=== PATIENT | female | born 1945 | race Hispanic/Latino ===

== ENCOUNTER 2017-08-12 21:12 | Emergency (ER) | payer MEDICARE ==
[~2017-08-12 21:12] MED LIST: BRIN10DR OU; CLOP75TA32 PO; CYAN1TAB44 SL; ESOM40CA PO; INSU10VI3 SQ; LANTANOPROST OU; NITR0.4T50 SL; PREG75 PO; SOTA160T PO
[2017-08-12 21:45] LABS: BASOPHILS % (AUTO) 0.5 % (0.0-5.0); EOSINOPHILS % (AUTO) 0.5 % (0.0-8.0); LYMPHOCYTES % (AUTO) 9.3 % (21.0-51.0); MEAN CORPUSCULAR HGB CONC 31.7 g/dL (32.0-36.0); MEAN CORPUSCULAR VOLUME 72.5 fL (79-99); MONOCYTES % (AUTO) 6.8 % (3.0-13.0); NEUTROPHILS % (AUTO) 82.9 % (40.0-77.0); PLATELET COUNT (AUTO) 91 K/uL (130-400); RED BLOOD CELL COUNT(AUTO) 4.27 MIL/uL (4.00-5.50); RED CELL DISTRIBUTION WIDTH 17.3 % (11.0-15.5); WHITE BLOOD COUNT (AUTO) 6.1 K/uL (4.8-10.8)
[2017-08-12 21:49] LABS: INR 1.02 (0.85-1.15); PARTIAL THROMBOPLASTIN TIME 27.5 SEC (26.3-35.5); PROTHROMBIN TIME 10.7 SEC (9.6-11.6)
[2017-08-12 21:50] LABS: CREATININE 0.8 mg/dL (0.5-1.5); POTASSIUM 3.6 mmol/L (3.5-5.1)
[2017-08-12 21:54] LABS: ALBUMIN 3.3 g/dL (3.5-5.0); BILIRUBIN,DIRECT 0.1 mg/dL (0.0-0.3); BILIRUBIN,TOTAL 0.4 mg/dL (0.2-1.0); TOTAL PROTEIN, SERUM 7.3 g/dL (6.0-8.3)
[2017-08-12] MEDS ORDERED: ONDANSETRON HCL 4 MG/2 ML VIAL ONE (21:59)
[2017-08-12] MEDS ORDERED: SODIUM CHLORIDE 0.9% 1000ML 1,000 ML IV ONE (22:04)
[2017-08-12] MEDS ORDERED: KETOROLAC TROMETHAMINE 30MG/ML ONE (22:04)
== END 2017-08-13 00:01 | disposition home or self-care (01) ==
LOC: EDH 21:12
DX: K52.9 Noninfective gastroenteritis and colitis, unspecified (principal); I25.10 Atherosclerotic heart disease of native coronary artery without angina pectoris; E11.9 Type 2 diabetes mellitus without complications; E78.5 Hyperlipidemia, unspecified; I10 Essential (primary) hypertension; K74.60 Unspecified cirrhosis of liver; Z72.0 Tobacco use
CPT/HCPCS: 36415; 74176; 80048; 80076; 82550; 83690; 84484; 85025; 85610; 85730; 93005; 96361; 96374; 96375; 99285; J1885; J2405; J7030

== ENCOUNTER → 2018-02-22 | Outpatient (CLI) | payer MEDICARE ==
[~2018-02-22] VITALS: Ht 154.9 cm; Wt 73.5 kg
[~2018-02-22] MED LIST changes: +REGADENOSON 0.4 MG/5 ML PF SYG IVP SCH
== END | disposition home or self-care (01) ==
LOC: SHCH 10:00
PROVIDERS: ATTEND Internal Medicine Cardiovascular Disease
DX: I65.29 Occlusion and stenosis of unspecified carotid artery (principal); R05 Cough; I11.0 Hypertensive heart disease with heart failure; I50.22 Chronic systolic (congestive) heart failure; E11.43 Type 2 diabetes mellitus with diabetic autonomic (poly)neuropathy; E78.5 Hyperlipidemia, unspecified; M19.90 Unspecified osteoarthritis, unspecified site; I25.10 Atherosclerotic heart disease of native coronary artery without angina pectoris; K21.9 Gastro-esophageal reflux disease without esophagitis; Z90.710 Acquired absence of both cervix and uterus
CPT/HCPCS: 78452; 93017; 96374; A9500 ×2; J2785

== ENCOUNTER 2018-03-10 06:44 | Day surgery (SDC) | payer MEDICARE ==
[2018-03-08 11:09] VITALS: BP 116/61
[2018-03-08 11:12] LABS: BASOPHILS % (AUTO) 0.7 % (0.0-5.0); EOSINOPHILS % (AUTO) 1.4 % (0.0-8.0); HEMATOCRIT 34.5 % (36-48); LYMPHOCYTES % (AUTO) 14.2 % (21.0-51.0); MEAN CORPUSCULAR HEMOGLOBIN 24.5 pg (27.0-33.0); MEAN CORPUSCULAR VOLUME 79.1 fL (79-99); MONOCYTES % (AUTO) 6.8 % (3.0-13.0); NEUTROPHILS % (AUTO) 76.9 % (40.0-77.0); PLATELET COUNT (AUTO) 71 K/uL (130-400); RED BLOOD CELL COUNT(AUTO) 4.36 MIL/uL (4.00-5.50); RED CELL DISTRIBUTION WIDTH 18.6 % (11.0-15.5); WHITE BLOOD COUNT (AUTO) 3.3 K/uL (4.8-10.8)
[2018-03-08 11:13] LABS: APPEARANCE,URINE Clear (CLEAR); BILIRUBIN,URINE Negative (NEGATIVE); COLOR,URINE Yellow (YELLOW); GLUCOSE, URINE (UA) 250 mg/dL (NEGATIVE); KETONES,URINE Negative (NEGATIVE); LEUKOCYTE ESTERASE ,URINE Negative (NEGATIVE); NITRATE,URINE Negative (NEGATIVE); OCCULT BLOOD,URINE Negative (NEGATIVE); PH,URINE 5.5 (5.0-8.0); PROTEIN,URINE Negative (NEGATIVE)
[2018-03-08 11:21] LABS: BACTERIA,URINE Rare /HPF (None Seen); RBC,URINE 0-1 /HPF (0-1); SQUAMOUS EPITHELIAL CELL,UR Few /HPF (0-2); WBC,URINE 0-1 /HPF (0-1)
[2018-03-08 11:22] LABS: CREATININE 0.8 mg/dL (0.5-1.5); POTASSIUM 4.1 mmol/L (3.5-5.1)
[~2018-03-10] VITALS: Ht 154.9 cm; Wt 74.2 kg
[2018-03-10] VITALS (20 sets, daily range): BP systolic 105–127; BP diastolic 37–59
[~2018-03-10 06:44] MED LIST changes: -BRIN10DR OU; +CLOP75TA14 PO; -CLOP75TA32 PO; -CYAN1TAB44 SL; -ESOM40CA PO; +FERS325 PO; +HUM10VIA6 SQ; -INSU10VI3 SQ; -LANTANOPROST OU; +METO5TAB2 PO; -NITR0.4T50 SL; +PANT20TA12 PO; -REGADENOSON 0.4 MG/5 ML PF SYG IVP SCH; +VITAMIN B12 PO
[2018-03-10 07:40] LABS: BASOPHILS % (AUTO) 0.5 % (0.0-5.0); HEMATOCRIT 32.6 % (36-48); LYMPHOCYTES % (AUTO) 18.6 % (21.0-51.0); MEAN CORPUSCULAR HEMOGLOBIN 24.7 pg (27.0-33.0); MEAN CORPUSCULAR HGB CONC 31.4 g/dL (32.0-36.0); MEAN CORPUSCULAR VOLUME 78.7 fL (79-99); MONOCYTES % (AUTO) 9.4 % (3.0-13.0); NEUTROPHILS % (AUTO) 69.5 % (40.0-77.0); NUCLEATED RED BLOOD CELLS 0.1 % (0.0-0.19); PLATELET COUNT (AUTO) 65 K/uL (130-400); RED BLOOD CELL COUNT(AUTO) 4.14 MIL/uL (4.00-5.50); RED CELL DISTRIBUTION WIDTH 18.5 % (11.0-15.5); WHITE BLOOD COUNT (AUTO) 3.1 K/uL (4.8-10.8)
[2018-03-10] MEDS ORDERED: ALPRAZOLAM 0.5 MG TABLET PO SCH (08:15)
[2018-03-10 08:45] LABS: BASOPHILS % (MANUAL) 1 % (0-2); EOSINOPHILS % (MANUAL) 2 % (1-6); LYMPHOCYTES % (MANUAL) 17 % (22-44); MAN.DIFF COMMENT-IMPRESSION MANUAL DIFFERENTIAL; MONOCYTES % (MANUAL) 5 % (2-9); SEGMENTED NEUTROPHILS % 75 % (40-70)
[2018-03-10] MEDS ORDERED: SODIUM CHLORIDE 0.9% 1000ML 1,000 ML IV ONE (09:12)
[2018-03-10] MEDS ORDERED: LIDOCAINE HCL-MPF 2% 5ML VIAL ONE (10:10)
[2018-03-10] MEDS ORDERED: NITROGLYCERIN 5 MG/ML 10 ML VIAL IV ONE (10:10)
[2018-03-10] MEDS ORDERED: IOHEXOL 350 MG/ML 100ML INFUS..BTL IV ONE (10:10)
[2018-03-10] MEDS ORDERED: IOHEXOL-350 50ML VIAL IV ONE (10:11)
[2018-03-10] MEDS ORDERED: SODIUM CHLORIDE 0.9% 1000ML 1,000 ML IV SCH (11:21)
[2018-03-10] MEDS ORDERED: HYDRALAZINE HCL 20 MG/ML VIAL IV PRN (11:30)
[2018-03-10] MEDS ORDERED: GLUCAGON 1MG KIT 1 MG ML IM PRN (11:30)
[2018-03-10] MEDS ORDERED: DEXTROSE 50%-WATER 50 ML DISP.SYRIN IV PRN (11:30)
[2018-03-10] MEDS ORDERED: METOPROLOL TARTRATE 1 MG/ML 5ML VIAL IV PRN (11:30)
[2018-03-10] MEDS ORDERED: NITROGLYCERIN 0.4 MG SL TAB SL PRN (11:30)
[2018-03-10] MEDS ORDERED: INSULIN HUMULIN R 100 UNIT/ML 3ML SQ SCH (11:30)
[2018-03-10] MEDS ORDERED: ATROPINE SULFATE 0.1 MG/ML 10 ML SYG IVP ONE (11:52)
[2018-03-10] MEDS ORDERED: ONDANSETRON HCL MDV 20ML 2 MG/ML VIAL ONE (11:53)
[2018-03-10] MEDS ORDERED: ONDANSETRON HCL 4 MG/2 ML VIAL IVP SCH (13:30)
== END 2018-03-10 15:39 | disposition home or self-care (01) ==
LOC: DAH 06:44
PROVIDERS: ATTEND Internal Medicine Cardiovascular Disease
DX: I25.119 Atherosclerotic heart disease of native coronary artery with unspecified angina pectoris (principal); I10 Essential (primary) hypertension; E11.9 Type 2 diabetes mellitus without complications; I97.89 Other postprocedural complications and disorders of the circulatory system, not elsewhere classified; D61.818 Other pancytopenia; I48.0 Paroxysmal atrial fibrillation; I73.9 Peripheral vascular disease, unspecified; Z95.0 Presence of cardiac pacemaker; I49.5 Sick sinus syndrome; Z79.4 Long term (current) use of insulin; Z79.01 Long term (current) use of anticoagulants; Z79.899 Other long term (current) drug therapy; Z90.710 Acquired absence of both cervix and uterus; Z98.890 Other specified postprocedural states; Z82.49 Family history of ischemic heart disease and other diseases of the circulatory system
CPT/HCPCS: 36415 ×2; 71045; 80048; 81001; 82948 ×2; 85025 ×2; 85060; 85610; 85730; 93005; 93459; A4606; C1894 ×2; J1644; J1815; J3490 ×2; J7030; Q9965; Q9967 ×2; J0461

== ENCOUNTER → 2018-04-08 | Outpatient (CLI) | payer MEDICARE ==
[~2018-04-08] MED LIST changes: +IOHEXOL-350 75 ML VIAL IV ONE
== END | disposition home or self-care (01) ==
LOC: RAH 10:53
PROVIDERS: ATTEND Internal Medicine Gastroenterology
DX: K74.60 Unspecified cirrhosis of liver (principal); D73.2 Chronic congestive splenomegaly; R18.8 Other ascites; Z90.710 Acquired absence of both cervix and uterus; Z90.49 Acquired absence of other specified parts of digestive tract
CPT/HCPCS: 74178; Q9967

== ENCOUNTER → 2018-04-19 | Outpatient (CLI) | payer MEDICARE ==
[~2018-04-19] MED LIST changes: -IOHEXOL-350 75 ML VIAL IV ONE
[2018-04-19 09:57] LABS: BASOPHILS % (AUTO) 0.7 % (0.0-5.0); EOSINOPHILS % (AUTO) 1.6 % (0.0-8.0); HEMATOCRIT 36.2 % (36-48); LYMPHOCYTES % (AUTO) 15.8 % (21.0-51.0); MEAN CORPUSCULAR HEMOGLOBIN 24.2 pg (27.0-33.0); MEAN CORPUSCULAR HGB CONC 31.7 g/dL (32.0-36.0); MEAN CORPUSCULAR VOLUME 76.3 fL (79-99); MONOCYTES % (AUTO) 5.4 % (3.0-13.0); NEUTROPHILS % (AUTO) 76.5 % (40.0-77.0); PLATELET COUNT (AUTO) 63 K/uL (130-400); RED BLOOD CELL COUNT(AUTO) 4.74 MIL/uL (4.00-5.50); WHITE BLOOD COUNT (AUTO) 2.7 K/uL (4.8-10.8)
[2018-04-19 10:10] LABS: INR 1.05 (0.85-1.15)
[2018-04-19 10:13] LABS: ALBUMIN 3.3 g/dL (3.5-5.0); BILIRUBIN,TOTAL 0.5 mg/dL (0.2-1.0); CREATININE 0.8 mg/dL (0.5-1.5); TOTAL PROTEIN, SERUM 7.1 g/dL (6.0-8.3)
[2018-04-19 10:20] LABS: BASOPHILS % (MANUAL) 2 % (0-2); LYMPHOCYTES % (MANUAL) 15 % (22-44); MONOCYTES % (MANUAL) 2 % (2-9); SEGMENTED NEUTROPHILS % 81 % (40-70)
[2018-04-19 10:22] LABS: MAN.DIFF COMMENT-IMPRESSION MANUAL DIFFERENTIAL; PLATELET MORPHOLOGY COMMENT DECREASED
== END | disposition home or self-care (01) ==
LOC: RAH 09:23
PROVIDERS: ATTEND Internal Medicine Gastroenterology
DX: K74.60 Unspecified cirrhosis of liver (principal); I48.91 Unspecified atrial fibrillation
CPT/HCPCS: 36415; 76705; 80053; 85025; 85610

== ENCOUNTER 2018-06-14 11:24 | Emergency (ER) | payer MEDICARE ==
[2018-06-14 11:54] LABS: BASOPHILS % (AUTO) 0.4 % (0.0-5.0); EOSINOPHILS % (AUTO) 1.4 % (0.0-8.0); HEMATOCRIT 31.9 % (36-48); LYMPHOCYTES % (AUTO) 18.3 % (21.0-51.0); MEAN CORPUSCULAR HEMOGLOBIN 23.4 pg (27.0-33.0); MEAN CORPUSCULAR HGB CONC 30.9 g/dL (32.0-36.0); MEAN CORPUSCULAR VOLUME 75.9 fL (79-99); MONOCYTES % (AUTO) 8.2 % (3.0-13.0); NEUTROPHILS % (AUTO) 71.7 % (40.0-77.0); NUCLEATED RED BLOOD CELLS 0.3 % (0.0-0.19); PLATELET COUNT (AUTO) 135 K/uL (130-400); RED BLOOD CELL COUNT(AUTO) 4.21 MIL/uL (4.00-5.50); RED CELL DISTRIBUTION WIDTH 18.9 % (11.0-15.5); WHITE BLOOD COUNT (AUTO) 9.3 K/uL (4.8-10.8)
[2018-06-14 12:07] LABS: CREATININE 0.9 mg/dL (0.5-1.5)
[2018-06-14 12:08] LABS: ALBUMIN 3.2 g/dL (3.5-5.0); BILIRUBIN,TOTAL 0.5 mg/dL (0.2-1.0); POTASSIUM 2.9 mmol/L (3.5-5.1); TOTAL PROTEIN, SERUM 7.1 g/dL (6.0-8.3)
[2018-06-14 12:20] LABS: B-TYPE NATRIURETIC PEPTIDE 61 pg/mL (0-100)
[2018-06-14 12:33] LABS: APPEARANCE,URINE Clear (CLEAR); BILIRUBIN,URINE Negative (NEGATIVE); COLOR,URINE Yellow (YELLOW); GLUCOSE, URINE (UA) 500 mg/dL (NEGATIVE); KETONES,URINE Negative (NEGATIVE); LEUKOCYTE ESTERASE ,URINE Negative (NEGATIVE); NITRATE,URINE Negative (NEGATIVE); OCCULT BLOOD,URINE Negative (NEGATIVE); PH,URINE 5.5 (5.0-8.0); PROTEIN,URINE Negative (NEGATIVE); UROBILINOGEN,URINE 0.2 mg/dL (0.2-1.0)
[2018-06-14] MEDS ORDERED: POTASSIUM BICARB/CIT AC 25 MEQ TABLET.EFF ONE (12:40)
[2018-06-14 13:16] LABS: BACTERIA,URINE Rare /HPF (None Seen); RBC,URINE 0-1 /HPF (0-1); SQUAMOUS EPITHELIAL CELL,UR Rare /HPF (0-2); WBC,URINE 0-1 /HPF (0-1)
== END 2018-06-14 13:11 | disposition home or self-care (01) ==
LOC: EDH 11:24
DX: E87.6 Hypokalemia (principal); E11.9 Type 2 diabetes mellitus without complications; I25.10 Atherosclerotic heart disease of native coronary artery without angina pectoris; K74.60 Unspecified cirrhosis of liver; E78.5 Hyperlipidemia, unspecified; I10 Essential (primary) hypertension; Z90.49 Acquired absence of other specified parts of digestive tract; Z90.710 Acquired absence of both cervix and uterus
CPT/HCPCS: 36415; 71045; 80053; 81001; 82550; 83880; 84484; 85025; 87804; 93005

== ENCOUNTER → 2019-06-29 | Outpatient (CLI) | payer OTHER, MEDICARE ==
[~2019-06-29] MED LIST changes: +BRINOS OU; -CLOP75TA14 PO; -FERS325 PO; +FURO20TA4 PO; -HUM10VIA6 SQ; +INSU100I35 SQ; +METO25 PO; -METO5TAB2 PO; +OSEL75 PO; +PANT40TA25 PO; +SPIR50TA5 PO; +SUCR1TAB2 PO; -VITAMIN B12 PO
== END | disposition home or self-care (01) ==
LOC: SHCH 12:39
PROVIDERS: ATTEND Internal Medicine Cardiovascular Disease
DX: I65.23 Occlusion and stenosis of bilateral carotid arteries (principal)
CPT/HCPCS: 93880

== ENCOUNTER → 2019-08-04 | Outpatient (CLI) | payer OTHER, MEDICARE | END | disposition home or self-care (01) | LOC: RAH 09:57 | PROVIDERS: ATTEND Internal Medicine Gastroenterology | DX: K56.609 Unspecified intestinal obstruction, unspecified as to partial versus complete obstruction (principal); M47.816 Spondylosis without myelopathy or radiculopathy, lumbar region | CPT/HCPCS: 74018 ==

== ENCOUNTER 2019-08-24 08:31 | Inpatient (IN) | payer OTHER, MEDICARE ==
[~2019-08-24] VITALS: Ht 152.4 cm; Wt 74.8 kg
[2019-08-24 09:19] LABS: BASOPHILS % (AUTO) 0.4 % (0.0-5.0); EOSINOPHILS % (AUTO) 1.7 % (0.0-8.0); LYMPHOCYTES % (AUTO) 12.8 % (21.0-51.0); MEAN CORPUSCULAR HEMOGLOBIN 22.7 pg (27.0-33.0); MEAN CORPUSCULAR HGB CONC 28.9 g/dL (32.0-36.0); MEAN CORPUSCULAR VOLUME 78.5 fL (79-99); MONOCYTES % (AUTO) 7.8 % (3.0-13.0); NEUTROPHILS % (AUTO) 76.7 % (40.0-77.0); NUCLEATED RED BLOOD CELLS 0.4 % (0.0-0.19); PLATELET COUNT (AUTO) 91 K/uL (130-400); RED BLOOD CELL COUNT(AUTO) 2.47 MIL/uL (4.00-5.50); RED CELL DISTRIBUTION WIDTH 17.9 % (11.0-15.5); WHITE BLOOD COUNT (AUTO) 5.4 K/uL (4.8-10.8)
[2019-08-24 09:25] LABS: HEMATOCRIT 19.4 % (36-48)
[2019-08-24 09:29] LABS: CREATININE 0.9 mg/dL (0.5-1.5); POTASSIUM 3.4 mmol/L (3.5-5.1)
[2019-08-24 09:39] LABS: ALBUMIN 2.7 g/dL (3.5-5.0); BILIRUBIN,TOTAL 0.6 mg/dL (0.2-1.0); TOTAL PROTEIN, SERUM 6.3 g/dL (6.0-8.3)
[2019-08-24] MEDS ORDERED: PANTOPRAZOLE SODIUM 80 MG in SODIUM CHLORIDE 0.9% 100 ML IV NR (10:15)
[2019-08-24] MEDS ORDERED: ONDANSETRON HCL 4 MG/2 ML VIAL IVP PRN (10:15)
[2019-08-24] MEDS ORDERED: OCTREOTIDE ACETATE 1,250 MCG in SODIUM CHLORIDE 0.9% 250 ML IV SCH (10:15)
[2019-08-24 10:20] LABS: INR 1.05 (0.85-1.15); PARTIAL THROMBOPLASTIN TIME 24.6 SEC (26.3-35.5); PROTHROMBIN TIME 11.3 SEC (9.6-11.6)
[2019-08-24] MEDS ORDERED: LIDOCAINE HCL-MPF 1% 2ML VIAL IV PRN (10:30)
[2019-08-24] MEDS ORDERED: POTASSIUM CHLORIDE 20MEQ/100ML 100 ML IV PRN (10:30)
[2019-08-24] MEDS ORDERED: SODIUM CHLORIDE 0.9% 500ML 500 ML IV ONE (11:35)
[2019-08-24] MEDS ORDERED: SODIUM CHLORIDE 0.9% 1000ML 1,000 ML IV ONE ×2 (12:58→18:03)
[2019-08-24 17:03] LABS: HEMATOCRIT 20.7 % (36-48)
[2019-08-24] MEDS ORDERED: CEFTRIAXONE SODIUM 1 GM ONE (18:03)
[2019-08-24] MEDS ORDERED: POTASSIUM CHLORIDE 20 MEQ ERTAB PO ONE (19:29)
[2019-08-24] MEDS ORDERED: ONDANSETRON HCL 4 MG/2 ML VIAL ONE (19:32)
--- NOTE | 2019-08-24 21:00 | NUR ---
PT ARRIVED VIA STRETCHER. TRANSFERRED TO BED ROOM 223. PT DENIES ANY PAIN OR DISCOMFORT. AAOx4. BED TO LOWEST LEVEL. CALL LIGHT WITHIN REACH.
[2019-08-24 21:15] VITALS: BP 119/44
[2019-08-24 21:57] LABS: HEMATOCRIT 22.2 % (36-48)
[2019-08-24 23:42] VITALS: BP 111/51
[2019-08-24] MEDS ORDERED: SODIUM CHLORIDE 0.9% 250 ML IV ONE (23:58)
[2019-08-25] VITALS (20 sets, daily range): BP systolic 98–151; BP diastolic 41–92
[2019-08-25] MEDS ORDERED: SODIUM CHLORIDE 0.9% 250 ML IV ONE (01:17)
[2019-08-25] MEDS ORDERED: METO5 PO (01:36)
[2019-08-25 04:50] LABS: BASOPHILS % (AUTO) 0.6 % (0.0-5.0); EOSINOPHILS % (AUTO) 1.2 % (0.0-8.0); HEMATOCRIT 26.8 % (36-48); LYMPHOCYTES % (AUTO) 23.2 % (21.0-51.0); MEAN CORPUSCULAR HEMOGLOBIN 24.5 pg (27.0-33.0); MEAN CORPUSCULAR HGB CONC 30.2 g/dL (32.0-36.0); MEAN CORPUSCULAR VOLUME 81.2 fL (79-99); MONOCYTES % (AUTO) 7.7 % (3.0-13.0); PLATELET COUNT (AUTO) 76 K/uL (130-400); WHITE BLOOD COUNT (AUTO) 3.2 K/uL (4.8-10.8)
[2019-08-25 05:15] LABS: HEMATOCRIT 25.6 % (36-48)
[2019-08-25 05:38] LABS: INR 1.06 (0.85-1.15); PROTHROMBIN TIME 11.4 SEC (9.6-11.6)
[2019-08-25 06:00] LABS: ALBUMIN 2.5 g/dL (3.5-5.0); CREATININE 0.8 mg/dL (0.5-1.5); POTASSIUM 3.8 mmol/L (3.5-5.1); TOTAL PROTEIN, SERUM 5.9 g/dL (6.0-8.3)
[2019-08-25] MEDS ORDERED: PROPOFOL 10 MG/ML 20ML VIAL IV ONE (11:24)
[2019-08-25] MEDS ORDERED: LIDOCAINE HCL 1% 20 ML VIAL ONE (11:24)
[2019-08-25] MEDS ORDERED: SUCCINYLCHOLINE CHLORIDE 20 MG/ML 10 ML VIAL ONE (11:28)
[2019-08-25] MEDS ORDERED: ATROPINE SULFATE 0.1 MG/ML 10 ML SYG IVP ONE (11:56)
[2019-08-25] MEDS ORDERED: OCTREOTIDE ACETATE 100 MCG/ML AMP IV SCH (12:45)
[2019-08-25] MEDS ORDERED: OCTREOTIDE ACETATE 1,250 MCG in SODIUM CHLORIDE 0.9% 250 ML IV SCH (12:45)
[2019-08-25] MEDS: SODIUM CHLORIDE 0.9% 1000ML 1,000 ML IV SCH ×2 (14:20→18:10)
[2019-08-25 16:35] LABS: HEMATOCRIT 28.1 % (36-48)
--- NOTE | 2019-08-25 18:35 | NUR ---
DC PLAN VISITED WITH PATIENT. PATIENT LIVES ALONE. SEMI INDEPENDENT ABLE TO PERFORM ADL'S. PROVIDER 4 HRS A DAY. FEELS SAFE TO RETURN HOME. Addendum: 08/25/19 at 1837 by ELIZABETH PARISI RN CM Amended: Links added.
[2019-08-25] MEDS: PANTOPRAZOLE 40 MG/VIAL IVP SCH (21:08)
--- NOTE | 2019-08-26 02:10 | NUR ---
ORDERS PATIENT C/O ITCHING TO BODY. BENADRYL ORDERED PER JULIANA TANNER NP.
[2019-08-26] MEDS ORDERED: DIPHENHYDRAMINE HCL 25 MG CAPSULE PO PRN (02:15)
[2019-08-26 03:44] VITALS: BP 120/50
[2019-08-26 04:58] LABS: HEMATOCRIT 24.9 % (36-48)
[2019-08-26 07:53] VITALS: BP 129/58
[2019-08-26] MEDS: SODIUM CHLORIDE 0.9% 1000ML 1,000 ML IV SCH ×2 (08:37→15:35)
[2019-08-26] MEDS: PANTOPRAZOLE 40 MG/VIAL IVP SCH ×2 (09:06→20:58)
[2019-08-26 12:12] VITALS: BP 127/66
[2019-08-26 15:41] LABS: HEMATOCRIT 25.7 % (36-48)
[2019-08-26 16:31] VITALS: BP 130/69
[2019-08-26 19:38] VITALS: BP 157/76
[2019-08-26] MEDS ORDERED: SODIUM CHLORIDE 0.9% 10 ML VIAL ONE (20:28)
[2019-08-27 00:03] VITALS: BP 119/50
[2019-08-27 03:53] VITALS: BP 119/54
[2019-08-27 08:03] VITALS: BP 133/64
[2019-08-27 12:09] VITALS: BP 156/76
[2019-08-27 14:43] LABS: HEMATOCRIT 26.2 % (36-48)
[2019-08-27] MEDS ORDERED: PANTOPRAZOLE SODIUM 40 MG TABLET.DR PO SCH (16:30)
[2019-08-27 16:35] VITALS: BP 135/64
--- NOTE | 2019-08-27 18:25 | NUR ---
DISCHARGE INSTRUCTIONS/INFORMATION GIVEN TO PATIENT. TEACH BACK METHOD UTILIZED TO EDUCATE PATIENT ON S/S TO MONITOR FOR, WHEN TO CALL MD, F/U APPOINTMENTS AND NEW MEDS. PIV REMOVED. TIP WAS INTACT. ALL TELE PACK REMOVED AND RETURNED. ALL BELONGINGS WERE PACKED AND TAKEN HOME.
== END 2019-08-27 18:00 | disposition home or self-care (01) | DRG 432 ==
LOC: EDH 08:31 → EDHIP 10:04 → 2DH 19:56
PROVIDERS: ADMIT Internal Medicine; ATTEND Internal Medicine
PROC: 30233N1 Transfusion of Nonautologous Red Blood Cells into Peripheral Vein, Percutaneous Approach (ICD-10-PCS; principal; 2019-08-24)
PROC: 06L38CZ Occlusion of Esophageal Vein with Extraluminal Device, Via Natural or Artificial Opening Endoscopic (ICD-10-PCS; 2019-08-25)
DX: K74.60 Unspecified cirrhosis of liver (principal); I85.11 Secondary esophageal varices with bleeding; D62 Acute posthemorrhagic anemia; K76.6 Portal hypertension; E11.9 Type 2 diabetes mellitus without complications; E78.2 Mixed hyperlipidemia; F17.200 Nicotine dependence, unspecified, uncomplicated; I10 Essential (primary) hypertension; K31.89 Other diseases of stomach and duodenum; I25.10 Atherosclerotic heart disease of native coronary artery without angina pectoris; F17.210 Nicotine dependence, cigarettes, uncomplicated; K29.50 Unspecified chronic gastritis without bleeding; Z82.49 Family history of ischemic heart disease and other diseases of the circulatory system; Z83.3 Family history of diabetes mellitus; Z90.710 Acquired absence of both cervix and uterus; Z95.1 Presence of aortocoronary bypass graft; Z95.5 Presence of coronary angioplasty implant and graft; Z95.0 Presence of cardiac pacemaker; Z90.49 Acquired absence of other specified parts of digestive tract
CPT/HCPCS: 36415; 43244; 80053; 82140; 82270; 85014; 85018; 85025; 85027; 85610; 85730; 86850; 86900; 86901; 86922; 93005; C9113; G0378; J0330; J0461; J0696; J2354; J2405; J2704; J7030; J7040; P9016; Q0163

== ENCOUNTER → 2019-11-04 | Outpatient (CLI) | payer OTHER, MEDICARE ==
[~2019-11-04] MED LIST changes: +METO5 PO; -OSEL75 PO; -PANT20TA12 PO; -SOTA160T PO
== END | disposition home or self-care (01) ==
LOC: RAH 07:19
PROVIDERS: ATTEND Internal Medicine Gastroenterology
DX: K74.60 Unspecified cirrhosis of liver (principal); R18.8 Other ascites
CPT/HCPCS: 76700; 93975

== ENCOUNTER 2020-02-28 16:02 | Inpatient (IN) | payer OTHER, MEDICARE ==
[~2020-02-28] VITALS: Ht 142.2 cm; Wt 72.9 kg
[~2020-02-28 16:02] MED LIST changes: -PANT40TA25 PO; +PANT40TA55 PO
[2020-02-28 16:29] LABS: BASOPHILS % (AUTO) 0.4 % (0.0-5.0); EOSINOPHILS % (AUTO) 4.4 % (0.0-8.0); HEMATOCRIT 35.7 % (36-48); LYMPHOCYTES % (AUTO) 15.5 % (21.0-51.0); MEAN CORPUSCULAR HEMOGLOBIN 23.3 pg (27.0-33.0); MEAN CORPUSCULAR VOLUME 77.8 fL (79-99); MONOCYTES % (AUTO) 8.5 % (3.0-13.0); NEUTROPHILS % (AUTO) 70.8 % (40.0-77.0); PLATELET COUNT (AUTO) 102 K/uL (130-400); RED BLOOD CELL COUNT(AUTO) 4.59 MIL/uL (4.00-5.50); RED CELL DISTRIBUTION WIDTH 17.5 % (11.0-15.5); WHITE BLOOD COUNT (AUTO) 5.4 K/uL (4.8-10.8)
[2020-02-28 16:31] LABS: CREATININE 1.1 mg/dL (0.5-1.5)
[2020-02-28 16:35] LABS: INR 1.11 (0.85-1.15); PARTIAL THROMBOPLASTIN TIME 28.6 SEC (26.3-35.5); PROTHROMBIN TIME 11.9 SEC (9.6-11.6)
[2020-02-28 16:36] LABS: ALBUMIN 3.1 g/dL (3.5-5.0); BILIRUBIN,TOTAL 1.1 mg/dL (0.2-1.0)
[2020-02-28 16:59] LABS: B-TYPE NATRIURETIC PEPTIDE 550 pg/mL (0-100)
--- NOTE | 2020-02-28 18:15 | NUR ---
DIRECT ADMIT RECEIVED PT FROM ER, A&OX3, AMBULATING FROM WHEELCHAIR, CALM COOPERATIVE AND DOES NOT APPEAR TO BE IN ANY DISTRESS NOR ANY NEURO DEFICITS PRESENT. PT DENIES PAIN, SOB, NAUSEA. PT RESTING COMFORTABLY, CALL LIGHT WITHIN REACH.
[2020-02-28] MEDS ORDERED: HUMLIS7525 SQ (18:27)
[2020-02-28] MEDS ORDERED: FURO40TA5 PO (18:27)
[2020-02-28] MEDS ORDERED: INSU100I13 SQ (18:27)
[2020-02-28] MEDS ORDERED: SOTA160T PO (18:27)
[2020-02-28 18:33] VITALS: BP 127/52
[2020-02-28] MEDS ORDERED: DIPHENHYDRAMINE HCL 25 MG CAPSULE PO PRN (19:00)
[2020-02-28] MEDS ORDERED: NITROGLYCERIN 0.4 MG SL TAB SL PRN (19:00)
[2020-02-28] MEDS ORDERED: ONDANSETRON HCL 4 MG/2 ML VIAL IV PRN (19:00)
[2020-02-28] MEDS ORDERED: ACETAMINOPHEN 325 MG TAB PO PRN ×2 (19:00)
[2020-02-28] MEDS ORDERED: GLUCAGON 1MG KIT 1 MG ML IM PRN (19:30)
[2020-02-28] MEDS ORDERED: DEXTROSE 50%-WATER 50 ML DISP.SYRIN IV PRN (19:30)
[2020-02-28 19:55] VITALS: BP 123/49
[2020-02-28] MEDS: FAMOTIDINE 20MG TAB 20 MG TAB PO SCH (20:42)
[2020-02-28] MEDS: SODIUM CHLORIDE 0.9% 1000ML 1,000 ML IV SCH (20:42)
[2020-02-28] MEDS: INSULIN HUMULIN R 100 UNIT/ML 3ML SQ SCH (20:43)
--- NOTE | 2020-02-28 21:00 | NUR ---
Follow up for battery changed: Called on-call cardio, Eduardo Bernal MD to follow-up the schedule for Battery change of pacemaker with the following orders: 1. place pt on NPO MN 2. Have consent signed 3. Call [facility] at 7:30 am adria (02/28) for scheduling 4. Hold anticoagulants ( made aware that pt Lovenox was cancelled by BROADCAST SUPERVISOR hospitalist due to low platelet) - supervisor assembly department , Ms. Jaegery informed. Faxed CPOE order.
[2020-02-28] MEDS ORDERED: SODIUM CHLORIDE 0.9% 500ML 500 ML IV SCH (21:45)
--- NOTE | 2020-02-28 22:47 | NUR ---
AFLUTTER 100-110 BPM. no chest pain Informed on-call EDUCATION ANALYST with an order of EKG and to call back with the result. Addendum: 02/29/20 at 0045 by FREDY MOTA RN RN Supplemental O2 at 2LPM via NC administered at this time.
[2020-02-28] MEDS ORDERED: METOPROLOL TARTRATE 25 MG TAB PO SCH (23:40)
[2020-02-28] MEDS: METOPROLOL TARTRATE 25 MG TAB PO SCH (23:41)
--- NOTE | 2020-02-28 23:41 | NUR ---
Sustaining Afib/aflutter of 90-110 Home medication Metoprolol 12.5 po bid and Sotalol 160 mg po bid reconciled by on-call ELECTRICAL ENGINEERING DIRECTOR and was given as ordered. Pt denies feeling of discomfort. Fully awake and responsive. No apparent distress noted. Kept monitored and observed for any unusual changes. Cared for.
[2020-02-28] MEDS ORDERED: SOTALOL HCL 160 MG PO SCH (23:45)
[2020-02-28 23:51] VITALS: BP 102/57
[2020-02-29 03:59] VITALS: BP 104/56
[2020-02-29 05:39] LABS: BASOPHILS % (AUTO) 0.5 % (0.0-5.0); EOSINOPHILS % (AUTO) 2.2 % (0.0-8.0); HEMATOCRIT 33.4 % (36-48); LYMPHOCYTES % (AUTO) 18.3 % (21.0-51.0); MEAN CORPUSCULAR HEMOGLOBIN 23.4 pg (27.0-33.0); MEAN CORPUSCULAR HGB CONC 30.2 g/dL (32.0-36.0); MEAN CORPUSCULAR VOLUME 77.5 fL (79-99); MONOCYTES % (AUTO) 10.9 % (3.0-13.0); NEUTROPHILS % (AUTO) 68.1 % (40.0-77.0); PLATELET COUNT (AUTO) 82 K/uL (130-400); RED BLOOD CELL COUNT(AUTO) 4.31 MIL/uL (4.00-5.50); RED CELL DISTRIBUTION WIDTH 17.2 % (11.0-15.5); WHITE BLOOD COUNT (AUTO) 4.1 K/uL (4.8-10.8)
[2020-02-29 05:51] LABS: INR 1.12 (0.85-1.15); PARTIAL THROMBOPLASTIN TIME 28.8 SEC (26.3-35.5)
[2020-02-29 05:52] LABS: B-TYPE NATRIURETIC PEPTIDE 498 pg/mL (0-100)
[2020-02-29 06:01] LABS: ALBUMIN 2.7 g/dL (3.5-5.0); BILIRUBIN,TOTAL 0.9 mg/dL (0.2-1.0); CREATININE 0.9 mg/dL (0.5-1.5); MAGNESIUM 1.9 mg/dL (1.80-2.40); POTASSIUM 3.5 mmol/L (3.5-5.1); TOTAL PROTEIN, SERUM 6.3 g/dL (6.0-8.3)
[2020-02-29] MEDS: INSULIN HUMULIN R 100 UNIT/ML 3ML SQ SCH ×4 (06:04→21:00)
[2020-02-29] MEDS ORDERED: METOPROLOL TARTRATE 25 MG TAB PO SCH (09:00)
[2020-02-29] MEDS ORDERED: SOTALOL HCL 160 MG PO SCH (09:00)
[2020-02-29 09:18] VITALS: BP 117/68
[2020-02-29 11:13] VITALS: BP 119/56
[2020-02-29 11:42] VITALS: BP 119/56
[2020-02-29] MEDS: ALBUTEROL SULFATE 0.083% 2.5 MG/3 ML INH IH SCH ×3 (12:00→23:08)
[2020-02-29] MEDS: METOPROLOL TARTRATE 25 MG TAB PO SCH ×2 (14:25→21:20)
[2020-02-29] MEDS: FAMOTIDINE 20MG TAB 20 MG TAB PO SCH (14:25)
[2020-02-29] MEDS: SOTALOL HCL 80 MG TABLET PO SCH ×2 (14:25→21:20)
[2020-02-29] MEDS: SODIUM CHLORIDE 0.9% 1000ML 1,000 ML IV SCH (14:50)
[2020-02-29] MEDS ORDERED: CEFTRIAXONE SODIUM 1 GM IVP SCH (17:00)
[2020-02-29 17:23] VITALS: BP 101/75
[2020-02-29 19:00] VITALS: BP 109/46
[2020-03-01] VITALS (11 sets, daily range): BP systolic 101–131; BP diastolic 42–75
[2020-03-01 01:13] LABS: APPEARANCE,URINE Clear (CLEAR); BILIRUBIN,URINE Negative (NEGATIVE); COLOR,URINE Yellow (YELLOW); GLUCOSE, URINE (UA) Negative (NEGATIVE); KETONES,URINE Negative (NEGATIVE); LEUKOCYTE ESTERASE ,URINE Negative (NEGATIVE); NITRATE,URINE Negative (NEGATIVE); OCCULT BLOOD,URINE Negative (NEGATIVE); PROTEIN,URINE Negative (NEGATIVE)
[2020-03-01 04:10] LABS: HEMATOCRIT 33.3 % (36-48); MEAN CORPUSCULAR HEMOGLOBIN 23.2 pg (27.0-33.0); MEAN CORPUSCULAR HGB CONC 29.7 g/dL (32.0-36.0); RED BLOOD CELL COUNT(AUTO) 4.27 MIL/uL (4.00-5.50); RED CELL DISTRIBUTION WIDTH 17.4 % (11.0-15.5); WHITE BLOOD COUNT (AUTO) 4.9 K/uL (4.8-10.8)
[2020-03-01 04:30] LABS: INR 1.12 (0.85-1.15); PARTIAL THROMBOPLASTIN TIME 29.3 SEC (26.3-35.5)
[2020-03-01 04:32] LABS: CREATININE 0.9 mg/dL (0.5-1.5); POTASSIUM 3.6 mmol/L (3.5-5.1)
[2020-03-01] MEDS: INSULIN HUMULIN R 100 UNIT/ML 3ML SQ SCH ×2 (05:48→11:30)
[2020-03-01] MEDS: ALBUTEROL SULFATE 0.083% 2.5 MG/3 ML INH IH SCH ×2 (06:34→11:06)
[2020-03-01] MEDS ORDERED: VANCOMYCIN 1GM+NS 250ML 250 ML IV PRN (08:00)
[2020-03-01] MEDS ORDERED: MEPERIDINE-PF 25 MG/ML SYG ONE ×2 (08:34→09:11)
[2020-03-01] MEDS ORDERED: VANCOMYCIN 1GM+NS 250ML 500 ML IV ONE (08:34)
[2020-03-01] MEDS ORDERED: LIDOCAINE HCL 1% MDV 50ML VIAL ONE (08:34)
[2020-03-01] MEDS ORDERED: MIDAZOLAM HCL 1 MG/ML 2ML VIAL ONE ×2 (08:34→09:11)
[2020-03-01] MEDS ORDERED: BUPIVACAINE/PF 0.25% 30ML VIAL IJ ONE (08:34)
[2020-03-01] MEDS: METOPROLOL TARTRATE 25 MG TAB PO SCH (09:00)
[2020-03-01] MEDS ORDERED: ACETAMINOPHEN-CODEINE 300/30MG TAB PO PRN (10:00)
[2020-03-01] MEDS ORDERED: TRAM50TA4 PO (10:04)
[2020-03-01] MEDS: SODIUM CHLORIDE 0.9% 1000ML 1,000 ML IV SCH (10:50)
[2020-03-01] MEDS: SOTALOL HCL 80 MG TABLET PO SCH (12:13)
[2020-03-01] MEDS: FAMOTIDINE 20MG TAB 20 MG TAB PO SCH (12:14)
--- NOTE | 2020-03-01 16:00 | NUR ---
CM NOTE SPOKE TO PATIENT BRIEFLY AT BEDSIDE, ANTICIPATING DISCHARGE, NO CONCERNS OR TRIGGERS, DETIALED CM ASSESSMENT DEFERRED Addendum: 03/02/20 at 0854 by DONNIE CHOI RN CM Amended: Links added.
--- NOTE | 2020-03-01 18:21 | NUR ---
DISCHARGE INSTRUCTION PROVIDED TO DAUGHTER MARY ANN ON CARE OF DRESSING ,FOLLOW UP WITH DR BOWEN ,SCRIPT AND DRESSING CHANGES . ALSO INSTRUCTED PATIENT . DRESSING CHANGED .LISA INTACT . NO SIGNS OF BLEEDING OR SWELLING OBSERVED
== END 2020-03-01 18:10 | disposition home or self-care (01) | DRG 258 ==
LOC: EDH 16:02 → EDHIP 16:03 → INTOOBSV 16:03 → OBSVTOIN 16:03 → 4BH 18:32
PROVIDERS: ADMIT Internal Medicine; ATTEND Internal Medicine
PROC: 0JPT0PZ Removal of Cardiac Rhythm Related Device from Trunk Subcutaneous Tissue and Fascia, Open Approach (ICD-10-PCS; principal; 2020-03-01)
PROC: 0JH606Z Insertion of Pacemaker, Dual Chamber into Chest Subcutaneous Tissue and Fascia, Open Approach (ICD-10-PCS; 2020-03-01)
DX: Z45.010 Encounter for checking and testing of cardiac pacemaker pulse generator [battery] (principal); I50.33 Acute on chronic diastolic (congestive) heart failure; N17.9 Acute kidney failure, unspecified; D68.59 Other primary thrombophilia; D69.6 Thrombocytopenia, unspecified; I48.0 Paroxysmal atrial fibrillation; E11.9 Type 2 diabetes mellitus without complications; E78.5 Hyperlipidemia, unspecified; E86.0 Dehydration; I11.0 Hypertensive heart disease with heart failure; I25.10 Atherosclerotic heart disease of native coronary artery without angina pectoris; K74.60 Unspecified cirrhosis of liver; Y83.8 Other surgical procedures as the cause of abnormal reaction of the patient, or of later complication, without mention of misadventure at the time of the procedure; I49.5 Sick sinus syndrome; Z82.49 Family history of ischemic heart disease and other diseases of the circulatory system; Z83.3 Family history of diabetes mellitus; Z87.891 Personal history of nicotine dependence; Z90.710 Acquired absence of both cervix and uterus; Z95.0 Presence of cardiac pacemaker; Z95.1 Presence of aortocoronary bypass graft; Z95.5 Presence of coronary angioplasty implant and graft; Y92.89 Other specified places as the place of occurrence of the external cause
CPT/HCPCS: 33228; 36415; 71045; 80048; 80053; 81003; 82948; 83036; 83735; 83880; 85025; 85027; 85610; 85730; 93005; 93306; 93356; 94640; 94664; 99156; 99157; C1785; G0378; J0696; J1815; J2175; J2250; J3370; J3490

== ENCOUNTER → 2020-04-12 | Outpatient (CLI) | payer OTHER, MEDICARE ==
[~2020-04-12] MED LIST changes: -FURO20TA4 PO; +FURO40TA5 PO; +HUMLIS7525 SQ; +INSU100I13 SQ; -INSU100I35 SQ; +SOTA160T PO; +TRAM50TA4 PO
== END | disposition home or self-care (01) ==
LOC: RAH 08:33
PROVIDERS: ATTEND Internal Medicine Gastroenterology
DX: K74.60 Unspecified cirrhosis of liver (principal); K76.6 Portal hypertension; I81 Portal vein thrombosis
CPT/HCPCS: 76700; 93975

== ENCOUNTER → 2020-04-27 | Outpatient (CLI) | payer OTHER, MEDICARE ==
[~2020-04-27] MED LIST changes: +REGADENOSON 0.4 MG/5 ML PF SYG IVP SCH
== END | disposition home or self-care (01) ==
LOC: SHCH 07:56
PROVIDERS: ATTEND Internal Medicine Cardiovascular Disease
DX: I48.0 Paroxysmal atrial fibrillation (principal); R07.9 Chest pain, unspecified
CPT/HCPCS: 78452; 93017; 96374; A9500 ×2; J2785

== ENCOUNTER → 2020-06-07 | Outpatient (CLI) | payer OTHER, MEDICARE ==
[~2020-06-07] MED LIST changes: -REGADENOSON 0.4 MG/5 ML PF SYG IVP SCH
== END | disposition home or self-care (01) ==
LOC: SHCH 12:57
PROVIDERS: ATTEND Internal Medicine Cardiovascular Disease
DX: I70.203 Unspecified atherosclerosis of native arteries of extremities, bilateral legs (principal); I65.23 Occlusion and stenosis of bilateral carotid arteries; I87.2 Venous insufficiency (chronic) (peripheral)
CPT/HCPCS: 93925; 93970

== ENCOUNTER 2020-08-07 06:19 | Day surgery (SDC) | payer OTHER, MEDICARE ==
[~2020-08-07] VITALS: Ht 162.6 cm; Wt 68.0 kg
[~2020-08-07 06:19] MED LIST changes: +SODIUM CHLORIDE 0.9% 1000ML 1,000 ML IV ONE
[2020-08-07 06:35] VITALS: BP 129/52
[2020-08-07] MEDS ORDERED: NITR0.4T50 SL (07:12)
[2020-08-07] MEDS ORDERED: INSU100I43 SQ (07:12)
[2020-08-07] MEDS ORDERED: FERR-63 PO (07:12)
[2020-08-07] MEDS ORDERED: AMIO200T6 PO (07:12)
[2020-08-07] MEDS ORDERED: LACT10SO9 PO (07:12)
[2020-08-07] MEDS ORDERED: RIFA550T PO (07:12)
[2020-08-07] MEDS ORDERED: PROPOFOL 10 MG/ML 20ML VIAL IV ONE ×2 (07:33→07:43)
[2020-08-07] MEDS ORDERED: SODIUM CHLORIDE 0.9% 10 ML VIAL ONE (07:45)
[2020-08-07] MEDS ORDERED: PHENYLEPHRINE HCL 10 MG/ML 1ML VIAL IV ONE (07:45)
[2020-08-07 07:52] VITALS: BP 134/48
[2020-08-07 07:57] VITALS: BP 140/57
[2020-08-07 08:02] VITALS: BP 127/46
[2020-08-07 08:07] VITALS: BP 150/67
[2020-08-07 08:12] VITALS: BP 142/60
== END 2020-08-07 08:23 | disposition home or self-care (01) ==
LOC: DAH 06:19 → ENDO 06:19
PROVIDERS: ATTEND Internal Medicine Gastroenterology
DX: I85.10 Secondary esophageal varices without bleeding (principal); Z20.822 Contact with and (suspected) exposure to COVID-19; K76.6 Portal hypertension; K31.89 Other diseases of stomach and duodenum; K74.69 Other cirrhosis of liver; K29.50 Unspecified chronic gastritis without bleeding; E11.43 Type 2 diabetes mellitus with diabetic autonomic (poly)neuropathy; K31.84 Gastroparesis; I25.119 Atherosclerotic heart disease of native coronary artery with unspecified angina pectoris; E78.5 Hyperlipidemia, unspecified; I10 Essential (primary) hypertension; E66.9 Obesity, unspecified; I48.91 Unspecified atrial fibrillation; G93.49 Other encephalopathy; D50.9 Iron deficiency anemia, unspecified; Z86.010 Personal history of colon polyps; Z90.49 Acquired absence of other specified parts of digestive tract; Z90.710 Acquired absence of both cervix and uterus; Z90.722 Acquired absence of ovaries, bilateral; Z82.49 Family history of ischemic heart disease and other diseases of the circulatory system; Z83.3 Family history of diabetes mellitus; Z68.25 Body mass index [BMI] 25.0-25.9, adult; Z79.4 Long term (current) use of insulin; Z79.899 Other long term (current) drug therapy; Z98.890 Other specified postprocedural states
CPT/HCPCS: 43239; 43244; 82948 ×2; 93005; A4215; A4221; A4222; A4606; A4620; A4663; C9803; J2370; J2704 ×2; J7030; U0003

== ENCOUNTER → 2020-08-24 | Outpatient (CLI) | payer OTHER, MEDICARE ==
[~2020-08-24] MED LIST changes: +ALBUMIN (HUMAN) 25% 200 ML IV SCH; +AMIO200T6 PO; -BRINOS OU; +FERR-63 PO; -INSU100I13 SQ; +INSU100I43 SQ; +LACT10SO9 PO; -METO25 PO; +NITR0.4T50 SL; +RIFA550T PO; -SODIUM CHLORIDE 0.9% 1000ML 1,000 ML IV ONE; -SOTA160T PO; -TRAM50TA4 PO
[2020-08-24 12:24] LABS: HEMATOCRIT 37.8 % (36-48); MEAN CORPUSCULAR HEMOGLOBIN 27.8 pg (27.0-33.0); MEAN CORPUSCULAR VOLUME 86.7 fL (79-99); PLATELET COUNT (AUTO) 65 K/uL (130-400); RED BLOOD CELL COUNT(AUTO) 4.36 MIL/uL (4.00-5.50); WHITE BLOOD COUNT (AUTO) 4.4 K/uL (4.8-10.8)
[2020-08-24 12:40] LABS: INR 1.11 (0.85-1.15)
[2020-08-24 12:46] LABS: ALBUMIN 2.9 g/dL (3.5-5.0); BILIRUBIN,TOTAL 0.9 mg/dL (0.2-1.0); POTASSIUM 4.1 mmol/L (3.5-5.1); TOTAL PROTEIN, SERUM 6.9 g/dL (6.0-8.3)
[2020-08-24 13:43] LABS: LYMPHOCYTES % (MANUAL) 17 % (22-44); MAN.DIFF COMMENT-IMPRESSION MANUAL DIFFERENTIAL; MONOCYTES % (MANUAL) 4 % (2-9); SEGMENTED NEUTROPHILS % 79 % (40-70)
[2020-08-24 13:44] LABS: PLATELET MORPHOLOGY COMMENT DECREASED
== END | disposition home or self-care (01) ==
LOC: RAH 09:56
PROVIDERS: ATTEND Internal Medicine Gastroenterology
DX: R10.13 Epigastric pain (principal)
CPT/HCPCS: 36415; 76705; 80053; 85025; 85610; 85730; P9046

== ENCOUNTER 2020-09-04 05:58 | Day surgery (SDC) | payer OTHER, MEDICARE ==
[2020-09-02 07:45] VITALS: BP 104/51
[~2020-09-04] VITALS: Ht 162.6 cm; Wt 70.8 kg
[~2020-09-04 05:58] MED LIST changes: -ALBUMIN (HUMAN) 25% 200 ML IV SCH
[2020-09-04] MEDS ORDERED: SODIUM CHLORIDE 0.9% 1000ML 1,000 ML IV ONE (06:17)
[2020-09-04 06:35] VITALS: BP 121/53
[2020-09-04] MEDS ORDERED: ISOS30TA92 PO (07:05)
[2020-09-04] MEDS ORDERED: INSU3INS5 SQ (07:05)
[2020-09-04] MEDS ORDERED: PROPOFOL 10 MG/ML 20ML VIAL IV ONE (07:23)
[2020-09-04] MEDS ORDERED: LIDOCAINE HCL 1% 20 ML VIAL ONE (07:23)
[2020-09-04 07:40] VITALS: BP 91/40
[2020-09-04 07:50] VITALS: BP 102/50
[2020-09-04 07:55] VITALS: BP 91/48
[2020-09-04 08:14] VITALS: BP 121/58
== END 2020-09-04 08:22 | disposition home or self-care (01) ==
LOC: DAH 05:58 → ENDO 05:58
PROVIDERS: ATTEND Internal Medicine Gastroenterology
DX: I85.10 Secondary esophageal varices without bleeding (principal); Z20.822 Contact with and (suspected) exposure to COVID-19; K74.69 Other cirrhosis of liver; K31.89 Other diseases of stomach and duodenum; D50.9 Iron deficiency anemia, unspecified; K21.9 Gastro-esophageal reflux disease without esophagitis; E66.01 Morbid (severe) obesity due to excess calories; I10 Essential (primary) hypertension; E78.5 Hyperlipidemia, unspecified; E11.43 Type 2 diabetes mellitus with diabetic autonomic (poly)neuropathy; K31.84 Gastroparesis; I25.119 Atherosclerotic heart disease of native coronary artery with unspecified angina pectoris; I48.19 Other persistent atrial fibrillation; E66.9 Obesity, unspecified; Z68.26 Body mass index [BMI] 26.0-26.9, adult; Z86.010 Personal history of colon polyps; Z79.4 Long term (current) use of insulin; Z90.710 Acquired absence of both cervix and uterus; Z90.49 Acquired absence of other specified parts of digestive tract; Z90.721 Acquired absence of ovaries, unilateral; Z82.49 Family history of ischemic heart disease and other diseases of the circulatory system; Z83.3 Family history of diabetes mellitus; Z87.891 Personal history of nicotine dependence
CPT/HCPCS: 43239; 43244; 82948 ×2; 93005; A4215; A4221; A4222; A4223; A4606; A4620; A4663; C9803; J2704; J7030; U0003

== ENCOUNTER 2020-09-22 11:42 | Inpatient (IN) | payer OTHER, MEDICARE ==
[~2020-09-22] VITALS: Ht 162.6 cm; Wt 68.6 kg
[~2020-09-22 11:42] MED LIST changes: -AMIO200T6 PO; +AMIO200T68 PO; -INSU100I43 SQ; +INSU3INS5 SQ; +ISOS30TA92 PO
[2020-09-22 12:01] LABS: BASOPHILS % (AUTO) 0.5 % (0.0-5.0); EOSINOPHILS % (AUTO) 0.5 % (0.0-8.0); HEMATOCRIT 42.3 % (36-48); LYMPHOCYTES % (AUTO) 12.8 % (21.0-51.0); MEAN CORPUSCULAR HEMOGLOBIN 28.9 pg (27.0-33.0); MEAN CORPUSCULAR HGB CONC 33.1 g/dL (32.0-36.0); MEAN CORPUSCULAR VOLUME 87.4 fL (79-99); MONOCYTES % (AUTO) 5.1 % (3.0-13.0); NEUTROPHILS % (AUTO) 80.9 % (40.0-77.0); PLATELET COUNT (AUTO) 66 K/uL (130-400); RED BLOOD CELL COUNT(AUTO) 4.84 MIL/uL (4.00-5.50); RED CELL DISTRIBUTION WIDTH 15.8 % (11.0-15.5); WHITE BLOOD COUNT (AUTO) 4.3 K/uL (4.8-10.8)
[2020-09-22] MEDS ORDERED: CEFTRIAXONE 1G VIAL ONE (12:01)
[2020-09-22] MEDS ORDERED: 0.9%NACL 100ML 100 ML IV ONE (12:01)
[2020-09-22] MEDS ORDERED: PANTOPRAZOLE 40 MG/VIAL ONE (12:01)
[2020-09-22 12:25] LABS: CREATININE 0.9 mg/dL (0.5-1.5); POTASSIUM 4.3 mmol/L (3.5-5.1)
[2020-09-22 12:26] LABS: ALBUMIN 3.4 g/dL (3.5-5.0); BILIRUBIN,TOTAL 1.4 mg/dL (0.2-1.0); TOTAL PROTEIN, SERUM 7.9 g/dL (6.0-8.3)
[2020-09-22 12:32] LABS: INR 1.13 (0.85-1.15); PARTIAL THROMBOPLASTIN TIME 26.5 SEC (26.3-35.5); PROTHROMBIN TIME 11.6 SEC (9.6-11.6)
[2020-09-22 12:48] LABS: APPEARANCE,URINE Clear (CLEAR); BILIRUBIN,URINE Negative (NEGATIVE); COLOR,URINE Yellow (YELLOW); GLUCOSE, URINE (UA) 500 mg/dL (NEGATIVE); KETONES,URINE Negative (NEGATIVE); LEUKOCYTE ESTERASE ,URINE Negative (NEGATIVE); NITRATE,URINE Negative (NEGATIVE); OCCULT BLOOD,URINE Negative (NEGATIVE); PH,URINE 7.5 (5.0-8.0); PROTEIN,URINE Negative (NEGATIVE)
[2020-09-22 12:53] LABS: BACTERIA,URINE Rare /HPF (None Seen); RBC,URINE 0-1 /HPF (0-1); SQUAMOUS EPITHELIAL CELL,UR Rare /HPF (0-2); WBC,URINE 0-1 /HPF (0-1)
[2020-09-22] MEDS ORDERED: PHARMACY COMMUNICATION MISC SCH (13:15)
[2020-09-22] MEDS ORDERED: OCTREOTIDE ACETATE 1,250 MCG in 0.9% NACL 250ML 250 ML IV SCH (13:15)
[2020-09-22] MEDS ORDERED: NITROGLYCERIN 0.4 MG SL TAB SL PRN (13:45)
[2020-09-22] MEDS ORDERED: LACTULOSE 20 GM/30 ML UDCUP PR ONE (14:00)
[2020-09-22] MEDS ORDERED: ONDANSETRON 4MG INJ ONE (14:18)
[2020-09-22] MEDS ORDERED: OCTREOTIDE ACETATE 100 MCG/ML AMP SQ SCH (14:30)
[2020-09-22 14:52] LABS: BASOPHILS % (AUTO) 0.2 % (0.0-5.0); EOSINOPHILS % (AUTO) 0.4 % (0.0-8.0); HEMATOCRIT 41.7 % (36-48); LYMPHOCYTES % (AUTO) 13.8 % (21.0-51.0); MEAN CORPUSCULAR HEMOGLOBIN 28.7 pg (27.0-33.0); MEAN CORPUSCULAR HGB CONC 32.9 g/dL (32.0-36.0); MEAN CORPUSCULAR VOLUME 87.2 fL (79-99); MONOCYTES % (AUTO) 5.6 % (3.0-13.0); NEUTROPHILS % (AUTO) 79.8 % (40.0-77.0); PLATELET COUNT (AUTO) 64 K/uL (130-400); RED BLOOD CELL COUNT(AUTO) 4.78 MIL/uL (4.00-5.50); RED CELL DISTRIBUTION WIDTH 15.7 % (11.0-15.5); WHITE BLOOD COUNT (AUTO) 4.8 K/uL (4.8-10.8)
[2020-09-22] MEDS ORDERED: IBUPROFEN 100 MG/5 ML SUSP UDCUP ONE (15:23)
[2020-09-22 17:15] VITALS: BP 131/72
[2020-09-22 19:57] VITALS: BP 158/63
[2020-09-22 20:36] LABS: BASOPHILS % (AUTO) 0.6 % (0.0-5.0); EOSINOPHILS % (AUTO) 0.6 % (0.0-8.0); HEMATOCRIT 41.1 % (36-48); LYMPHOCYTES % (AUTO) 13.9 % (21.0-51.0); MEAN CORPUSCULAR HEMOGLOBIN 28.4 pg (27.0-33.0); MEAN CORPUSCULAR HGB CONC 31.9 g/dL (32.0-36.0); MEAN CORPUSCULAR VOLUME 89.2 fL (79-99); MONOCYTES % (AUTO) 8.5 % (3.0-13.0); NEUTROPHILS % (AUTO) 76.2 % (40.0-77.0); PLATELET COUNT (AUTO) 68 K/uL (130-400); RED BLOOD CELL COUNT(AUTO) 4.61 MIL/uL (4.00-5.50); RED CELL DISTRIBUTION WIDTH 15.9 % (11.0-15.5); WHITE BLOOD COUNT (AUTO) 4.8 K/uL (4.8-10.8)
[2020-09-22] MEDS: SOTALOL HCL 80 MG TABLET PO SCH (21:00)
[2020-09-22] MEDS: RIFAXIMIN 550 MG TABLET PO SCH (21:00)
[2020-09-22] MEDS: SUCRALFATE 1 GM TABLET PO SCH (21:00)
[2020-09-22] MEDS: ATORVASTATIN 20 MG TABLET PO SCH (21:00)
[2020-09-22] MEDS ORDERED: LACTULOSE 20 GM/30 ML UDCUP ONE (21:16)
[2020-09-22] MEDS ORDERED: LORAZEPAM 2 MG/ML 1 ML VIAL IVP ONE (21:30)
[2020-09-22 22:09] LABS: HEMOGLOBIN A1C 8.4 % (4.0-6.0)
[2020-09-22 23:14] VITALS: BP 142/60
[2020-09-23] MEDS ORDERED: LACTULOSE 20 GM/30 ML UDCUP PR ONE (00:45)
[2020-09-23 02:34] LABS: BASOPHILS % (AUTO) 0.5 % (0.0-5.0); EOSINOPHILS % (AUTO) 1.5 % (0.0-8.0); HEMATOCRIT 38.3 % (36-48); LYMPHOCYTES % (AUTO) 15.1 % (21.0-51.0); MEAN CORPUSCULAR HEMOGLOBIN 29.7 pg (27.0-33.0); MEAN CORPUSCULAR HGB CONC 33.9 g/dL (32.0-36.0); MEAN CORPUSCULAR VOLUME 87.4 fL (79-99); MONOCYTES % (AUTO) 9.4 % (3.0-13.0); NEUTROPHILS % (AUTO) 73.3 % (40.0-77.0); PLATELET COUNT (AUTO) 63 K/uL (130-400); RED BLOOD CELL COUNT(AUTO) 4.38 MIL/uL (4.00-5.50); RED CELL DISTRIBUTION WIDTH 15.9 % (11.0-15.5); WHITE BLOOD COUNT (AUTO) 4.1 K/uL (4.8-10.8)
[2020-09-23 04:45] VITALS: BP 93/53
[2020-09-23 06:25] LABS: BASOPHILS % (AUTO) 0.9 % (0.0-5.0); EOSINOPHILS % (AUTO) 1.7 % (0.0-8.0); HEMATOCRIT 41.9 % (36-48); LYMPHOCYTES % (AUTO) 14.8 % (21.0-51.0); MEAN CORPUSCULAR HEMOGLOBIN 29.1 pg (27.0-33.0); MEAN CORPUSCULAR HGB CONC 32.5 g/dL (32.0-36.0); MEAN CORPUSCULAR VOLUME 89.7 fL (79-99); MONOCYTES % (AUTO) 8.7 % (3.0-13.0); NEUTROPHILS % (AUTO) 73.5 % (40.0-77.0); PLATELET COUNT (AUTO) 63 K/uL (130-400); RED BLOOD CELL COUNT(AUTO) 4.67 MIL/uL (4.00-5.50); RED CELL DISTRIBUTION WIDTH 16.2 % (11.0-15.5); WHITE BLOOD COUNT (AUTO) 4.6 K/uL (4.8-10.8)
[2020-09-23] MEDS: SUCRALFATE 1 GM TABLET PO SCH ×4 (06:36→20:07)
[2020-09-23 07:38] LABS: CREATININE 0.9 mg/dL (0.5-1.5); POTASSIUM 3.8 mmol/L (3.5-5.1)
[2020-09-23] MEDS ORDERED: ATOR10 PO (07:40)
[2020-09-23] MEDS ORDERED: SPIR50TA5 PO (07:40)
[2020-09-23] MEDS ORDERED: METO5TAB2 PO (07:40)
[2020-09-23] MEDS ORDERED: SOTA160T PO (07:40)
[2020-09-23] MEDS ORDERED: METO-408 PO (07:40)
[2020-09-23 08:22] VITALS: BP 106/72
[2020-09-23] MEDS ORDERED: ISOSORBIDE MONO 30MG SR TAB PO SCH (09:00)
[2020-09-23] MEDS ORDERED: METOPROLOL SUCCINATE 50 MG TAB.SR.24H PO SCH (09:00)
[2020-09-23] MEDS: SOTALOL HCL 80 MG TABLET PO SCH ×2 (09:36→20:07)
[2020-09-23] MEDS: RIFAXIMIN 550 MG TABLET PO SCH ×2 (09:36→20:07)
[2020-09-23] MEDS: CEFTRIAXONE 1G VIAL IVP SCH (09:36)
[2020-09-23 12:38] VITALS: BP 106/46
[2020-09-23 13:53] LABS: BASOPHILS % (AUTO) 0.6 % (0.0-5.0); EOSINOPHILS % (AUTO) 0.6 % (0.0-8.0); HEMATOCRIT 40.9 % (36-48); LYMPHOCYTES % (AUTO) 9.7 % (21.0-51.0); MEAN CORPUSCULAR HEMOGLOBIN 29.2 pg (27.0-33.0); MEAN CORPUSCULAR HGB CONC 32.8 g/dL (32.0-36.0); MEAN CORPUSCULAR VOLUME 89.1 fL (79-99); MONOCYTES % (AUTO) 7.4 % (3.0-13.0); NEUTROPHILS % (AUTO) 81.3 % (40.0-77.0); PLATELET COUNT (AUTO) 61 K/uL (130-400); RED BLOOD CELL COUNT(AUTO) 4.59 MIL/uL (4.00-5.50); RED CELL DISTRIBUTION WIDTH 16.2 % (11.0-15.5); WHITE BLOOD COUNT (AUTO) 5.2 K/uL (4.8-10.8)
[2020-09-23] MEDS: LACTULOSE 20 GM/30 ML UDCUP PO SCH ×3 (14:42→20:24)
[2020-09-23 16:30] VITALS: BP 115/52
[2020-09-23 19:30] VITALS: BP 118/105
[2020-09-23] MEDS: ATORVASTATIN 20 MG TABLET PO SCH (20:07)
[2020-09-23] MEDS: INSULIN HUMULIN R 100 UNIT/ML 3ML SQ SCH (20:26)
[2020-09-23 20:31] LABS: BASOPHILS % (AUTO) 0.9 % (0.0-5.0); EOSINOPHILS % (AUTO) 2.1 % (0.0-8.0); HEMATOCRIT 41.5 % (36-48); LYMPHOCYTES % (AUTO) 12.8 % (21.0-51.0); MEAN CORPUSCULAR VOLUME 90.4 fL (79-99); MONOCYTES % (AUTO) 9.8 % (3.0-13.0); NEUTROPHILS % (AUTO) 74.2 % (40.0-77.0); PLATELET COUNT (AUTO) 58 K/uL (130-400); RED BLOOD CELL COUNT(AUTO) 4.59 MIL/uL (4.00-5.50); WHITE BLOOD COUNT (AUTO) 4.7 K/uL (4.8-10.8)
[2020-09-23] MEDS ORDERED: INSULIN GLARGINE 100 UNITS/ML 10 ML VIAL SQ SCH ×2 (21:00)
[2020-09-24 00:03] VITALS: BP 122/53
[2020-09-24 04:03] VITALS: BP 96/42
[2020-09-24 04:19] LABS: BASOPHILS % (AUTO) 0.6 % (0.0-5.0); LYMPHOCYTES % (AUTO) 17.7 % (21.0-51.0); MEAN CORPUSCULAR HEMOGLOBIN 28.2 pg (27.0-33.0); MEAN CORPUSCULAR HGB CONC 31.5 g/dL (32.0-36.0); MEAN CORPUSCULAR VOLUME 89.4 fL (79-99); MONOCYTES % (AUTO) 11.7 % (3.0-13.0); NEUTROPHILS % (AUTO) 66.8 % (40.0-77.0); PLATELET COUNT (AUTO) 68 K/uL (130-400); RED BLOOD CELL COUNT(AUTO) 4.36 MIL/uL (4.00-5.50); RED CELL DISTRIBUTION WIDTH 15.8 % (11.0-15.5); WHITE BLOOD COUNT (AUTO) 4.7 K/uL (4.8-10.8)
[2020-09-24] MEDS: INSULIN HUMULIN R 100 UNIT/ML 3ML SQ SCH ×3 (05:37→16:30)
[2020-09-24 05:44] LABS: CREATININE 0.9 mg/dL (0.5-1.5); POTASSIUM 3.4 mmol/L (3.5-5.1)
[2020-09-24] MEDS: SUCRALFATE 1 GM TABLET PO SCH ×3 (05:45→18:25)
[2020-09-24 07:54] VITALS: BP 113/60
[2020-09-24] MEDS: CEFTRIAXONE 1G VIAL IVP SCH (09:00)
[2020-09-24] MEDS: LACTULOSE 20 GM/30 ML UDCUP PO SCH ×2 (09:00→14:00)
[2020-09-24] MEDS: RIFAXIMIN 550 MG TABLET PO SCH (09:01)
[2020-09-24] MEDS: SOTALOL HCL 80 MG TABLET PO SCH (09:01)
[2020-09-24 09:22] LABS: BASOPHILS % (AUTO) 0.5 % (0.0-5.0); EOSINOPHILS % (AUTO) 3.3 % (0.0-8.0); HEMATOCRIT 38.7 % (36-48); LYMPHOCYTES % (AUTO) 19.5 % (21.0-51.0); MEAN CORPUSCULAR HEMOGLOBIN 28.5 pg (27.0-33.0); MEAN CORPUSCULAR HGB CONC 31.8 g/dL (32.0-36.0); MEAN CORPUSCULAR VOLUME 89.8 fL (79-99); MONOCYTES % (AUTO) 9.5 % (3.0-13.0); NEUTROPHILS % (AUTO) 66.9 % (40.0-77.0); PLATELET COUNT (AUTO) 70 K/uL (130-400); RED BLOOD CELL COUNT(AUTO) 4.31 MIL/uL (4.00-5.50); RED CELL DISTRIBUTION WIDTH 15.9 % (11.0-15.5); WHITE BLOOD COUNT (AUTO) 3.9 K/uL (4.8-10.8)
[2020-09-24 11:02] VITALS: BP 118/57
[2020-09-24] MEDS ORDERED: RIFA550T PO (16:50)
[2020-09-24 17:00] VITALS: BP 96/69
== END 2020-09-24 18:26 | disposition home or self-care (01) | DRG 442 ==
LOC: EDH 11:42 → EDHIP 13:10 → 4BH 17:37
PROVIDERS: ADMIT Internal Medicine; ATTEND Internal Medicine
DX: K72.90 Hepatic failure, unspecified without coma (principal); K92.0 Hematemesis; K74.60 Unspecified cirrhosis of liver; I25.10 Atherosclerotic heart disease of native coronary artery without angina pectoris; E88.09 Other disorders of plasma-protein metabolism, not elsewhere classified; E11.9 Type 2 diabetes mellitus without complications; I70.0 Atherosclerosis of aorta; D69.6 Thrombocytopenia, unspecified; R79.89 Other specified abnormal findings of blood chemistry; I11.9 Hypertensive heart disease without heart failure; Z20.822 Contact with and (suspected) exposure to COVID-19; I48.91 Unspecified atrial fibrillation; Z95.0 Presence of cardiac pacemaker; Z83.3 Family history of diabetes mellitus; Z82.49 Family history of ischemic heart disease and other diseases of the circulatory system; Z82.3 Family history of stroke; Z79.899 Other long term (current) drug therapy; Z79.84 Long term (current) use of oral hypoglycemic drugs
CPT/HCPCS: 36415; 70450; 71045; 74018; 76700; 80048; 80053; 81001; 82140; 82270; 82550; 82948; 83036; 83605; 84484; 85025; 85610; 85730; 86850; 86900; 86901; 87426; 93005; 99291; C9113; G0378; J0696; J1815; J2354; J2405; J7050; U0003

== ENCOUNTER → 2020-10-19 | Outpatient (CLI) | payer OTHER, MEDICARE ==
[~2020-10-19] MED LIST changes: +AMIO200T6 PO; -AMIO200T68 PO; +ATOR10 PO; -HUMLIS7525 SQ; -INSU3INS5 SQ; +METO-408 PO; +METO5TAB2 PO; +SOTA160T PO
== END | disposition home or self-care (01) ==
LOC: RAH 08:40
PROVIDERS: ATTEND Internal Medicine Gastroenterology
DX: I81 Portal vein thrombosis (principal); K74.60 Unspecified cirrhosis of liver; R16.1 Splenomegaly, not elsewhere classified
CPT/HCPCS: 76700; 93975

== ENCOUNTER → 2020-10-29 | Outpatient (CLI) | payer OTHER, MEDICARE ==
[~2020-10-29] MED LIST changes: +ALBUMIN (HUMAN) 25% 200 ML IV SCH
[2020-10-29 10:00] LABS: BASOPHILS % (AUTO) 0.3 % (0.0-5.0); EOSINOPHILS % (AUTO) 1.3 % (0.0-8.0); HEMATOCRIT 38.8 % (36-48); LYMPHOCYTES % (AUTO) 11.7 % (21.0-51.0); MEAN CORPUSCULAR HEMOGLOBIN 28.9 pg (27.0-33.0); MEAN CORPUSCULAR HGB CONC 32.2 g/dL (32.0-36.0); MEAN CORPUSCULAR VOLUME 89.8 fL (79-99); NEUTROPHILS % (AUTO) 78.4 % (40.0-77.0); PLATELET COUNT (AUTO) 71 K/uL (130-400); RED BLOOD CELL COUNT(AUTO) 4.32 MIL/uL (4.00-5.50); RED CELL DISTRIBUTION WIDTH 15.7 % (11.0-15.5); WHITE BLOOD COUNT (AUTO) 3.8 K/uL (4.8-10.8)
[2020-10-29 10:18] LABS: INR 1.16 (0.85-1.15); PROTHROMBIN TIME 12.5 SEC (9.6-11.6)
[2020-10-29 10:19] LABS: BILIRUBIN,TOTAL 1.6 mg/dL (0.2-1.0); CREATININE 0.9 mg/dL (0.5-1.5); TOTAL PROTEIN, SERUM 6.9 g/dL (6.0-8.3)
[2020-10-29 13:40] LABS: BF LYMPHOCYTE 30 %; BF MESOTHELIAL 66 %; BF MONOCYTE 3 %; SPECIMENTYPE,BODY FLUID ASCITES
[2020-10-29 13:41] LABS: APPEARANCE BODY FLUID CLEAR (CLEAR); BODY FLUID RBC 170 /cu. mm.; BODY FLUID WBC 194 /cu. mm.; COLOR,BODY FLUID YELLOW (LT YELLOW); TOTAL VOLUME,BODY FLUID 2600 mL
== END | disposition home or self-care (01) ==
LOC: RAH 09:33
PROVIDERS: ATTEND Internal Medicine Gastroenterology
DX: R18.8 Other ascites (principal)
CPT/HCPCS: 36415; 49083; 80053; 85025; 85610; 87071; 87205; 89051; A4215; P9046

== ENCOUNTER → 2021-02-28 | Outpatient (CLI) | payer OTHER, MEDICARE ==
[~2021-02-28] MED LIST changes: -ALBUMIN (HUMAN) 25% 200 ML IV SCH
== END | disposition home or self-care (01) ==
LOC: SHCH 02-01 15:34
PROVIDERS: ATTEND Internal Medicine Cardiovascular Disease
DX: I48.0 Paroxysmal atrial fibrillation (principal)
CPT/HCPCS: 93306; 93356

== ENCOUNTER → 2021-05-06 | Outpatient (CLI) | payer OTHER, MEDICARE ==
[~2021-05-06] MED LIST changes: -AMIO200T6 PO; +AMIO200T68 PO
[2021-05-06 11:06] LABS: ALBUMIN 2.9 g/dL (3.5-5.0); BILIRUBIN,TOTAL 1.6 mg/dL (0.2-1.0); POTASSIUM 4.8 mmol/L (3.5-5.1); TOTAL PROTEIN, SERUM 6.9 g/dL (6.0-8.3)
[2021-05-06 11:16] LABS: BASOPHILS % (AUTO) 0.9 % (0.0-5.0); EOSINOPHILS % (AUTO) 2.6 % (0.0-8.0); HEMATOCRIT 39.2 % (36-48); LYMPHOCYTES % (AUTO) 15.3 % (21.0-51.0); MEAN CORPUSCULAR HEMOGLOBIN 30.6 pg (27.0-33.0); MEAN CORPUSCULAR HGB CONC 32.9 g/dL (32.0-36.0); MEAN CORPUSCULAR VOLUME 92.9 fL (79-99); MONOCYTES % (AUTO) 10.8 % (3.0-13.0); NEUTROPHILS % (AUTO) 70.2 % (40.0-77.0); PLATELET COUNT (AUTO) 75 K/uL (130-400); RED BLOOD CELL COUNT(AUTO) 4.22 MIL/uL (4.00-5.50); RED CELL DISTRIBUTION WIDTH 14.6 % (11.0-15.5); WHITE BLOOD COUNT (AUTO) 4.3 K/uL (4.8-10.8)
[2021-05-06 11:31] LABS: INR 1.12 (0.85-1.15); PROTHROMBIN TIME 12.1 SEC (9.6-11.6)
== END | disposition home or self-care (01) ==
LOC: RAH 09:23
PROVIDERS: ATTEND Internal Medicine Gastroenterology
DX: I81 Portal vein thrombosis (principal); Z90.49 Acquired absence of other specified parts of digestive tract
CPT/HCPCS: 36415; 76700; 80053; 82105; 82140; 85025; 85610; 93975

== ENCOUNTER → 2021-08-19 | Outpatient (CLI) | payer OTHER, MEDICARE ==
[~2021-08-19] MED LIST changes: +IOHEXOL-350 75 ML VIAL IV ONE
== END | disposition home or self-care (01) ==
LOC: RAH 09:21
PROVIDERS: ATTEND Internal Medicine Gastroenterology
DX: I70.0 Atherosclerosis of aorta (principal); I86.8 Varicose veins of other specified sites; R16.1 Splenomegaly, not elsewhere classified; R10.13 Epigastric pain; Z90.49 Acquired absence of other specified parts of digestive tract
CPT/HCPCS: 74170; Q9967

== ENCOUNTER 2021-11-20 12:47 | Emergency (ER) | payer OTHER, MEDICARE ==
[~2021-11-20] VITALS: Ht 162.6 cm; Wt 70.8 kg
[~2021-11-20 12:47] MED LIST changes: -IOHEXOL-350 75 ML VIAL IV ONE
[2021-11-20 13:48] LABS: BASOPHILS % (AUTO) 0.4 % (0.0-5.0); EOSINOPHILS % (AUTO) 0.7 % (0.0-8.0); HEMATOCRIT 43.2 % (36-48); LYMPHOCYTES % (AUTO) 13.3 % (21.0-51.0); MEAN CORPUSCULAR HEMOGLOBIN 30.7 pg (27.0-33.0); MEAN CORPUSCULAR HGB CONC 33.1 g/dL (32.0-36.0); MEAN CORPUSCULAR VOLUME 92.7 fL (79-99); MONOCYTES % (AUTO) 6.4 % (3.0-13.0); NEUTROPHILS % (AUTO) 78.6 % (40.0-77.0); PLATELET COUNT (AUTO) 101 K/uL (130-400); RED BLOOD CELL COUNT(AUTO) 4.66 MIL/uL (4.00-5.50); RED CELL DISTRIBUTION WIDTH 15.6 % (11.0-15.5); WHITE BLOOD COUNT (AUTO) 6.7 K/uL (4.8-10.8)
[2021-11-20 14:01] LABS: CREATININE 1.2 mg/dL (0.5-1.5); POTASSIUM 3.5 mmol/L (3.5-5.1)
[2021-11-20 14:06] LABS: ALBUMIN 2.6 g/dL (3.5-5.0); BILIRUBIN,TOTAL 2.7 mg/dL (0.2-1.0); TOTAL PROTEIN, SERUM 6.3 g/dL (6.0-8.3)
[2021-11-20 16:00] LABS: MAGNESIUM 1.7 mg/dL (1.80-2.40)
[2021-11-20] MEDS ORDERED: LORAZEPAM 2 MG/ML 1 ML VIAL IVP ONE (16:00)
[2021-11-20] MEDS ORDERED: METOCLOPRAMIDE 10 MG/2 ML VIAL IVP ONE (16:00)
[2021-11-20 16:11] VITALS: BP 121/45
[2021-11-20] MEDS ORDERED: SUCRALFATE 1 GM TABLET PO SCH (16:30)
[2021-11-20 17:20] LABS: APPEARANCE,URINE Cloudy (CLEAR); BILIRUBIN,URINE Small (NEGATIVE); COLOR,URINE Dark Yellow (YELLOW); GLUCOSE, URINE (UA) 500 mg/dL (NEGATIVE); KETONES,URINE Trace mg/dL (NEGATIVE); LEUKOCYTE ESTERASE ,URINE Negative (NEGATIVE); NITRATE,URINE Negative (NEGATIVE); OCCULT BLOOD,URINE Negative (NEGATIVE); PH,URINE 6.5 (5.0-8.0); PROTEIN,URINE Trace mg/dL (NEGATIVE)
[2021-11-20 17:41] LABS: BACTERIA,URINE Few /HPF (None Seen); RBC,URINE None Seen /HPF (0-1); WBC,URINE None Seen /HPF (0-1)
[2021-11-20] MEDS ORDERED: ESOM40CA PO (18:30)
[2021-11-20] MEDS ORDERED: 0.9% NACL 500ML IV.SOLN 500 ML IV ONE (18:30)
[2021-11-20] MEDS ORDERED: SUCR1TAB2 PO (18:30)
[2021-11-20] MEDS ORDERED: METO10TA41 PO (18:30)
[2021-11-20] MEDS ORDERED: MAGNESIUM 2GM PREMIX 50ML 50 ML IV SCH (18:30)
== END 2021-11-20 19:43 | disposition home or self-care (01) ==
LOC: EDH 12:47
DX: K74.60 Unspecified cirrhosis of liver (principal); R10.13 Epigastric pain; Z20.822 Contact with and (suspected) exposure to COVID-19; E11.9 Type 2 diabetes mellitus without complications; I10 Essential (primary) hypertension; Z79.899 Other long term (current) drug therapy; Z90.49 Acquired absence of other specified parts of digestive tract; Z95.1 Presence of aortocoronary bypass graft; Z95.810 Presence of automatic (implantable) cardiac defibrillator
CPT/HCPCS: 36415; 80053; 81001; 82140; 83735; 84484; 85025; 87635; 87804 ×2; 93005; 96365; 96375; 99284; C9803; J2060; J2765; J3475

== ENCOUNTER → 2023-04-22 | Outpatient (CLI) | payer OTHER, MEDICARE ==
[~2023-04-22] MED LIST changes: -AMIO200T68 PO; -ATOR10 PO; -FERR-63 PO; -METO-408 PO; +METO10TA41 PO; -METO5 PO; -METO5TAB2 PO; -PANT40TA55 PO; -PREG75 PO; +SITA25TA5 PO; +SPIR100T PO; -SPIR50TA5 PO; -SUCR1TAB2 PO
[2023-04-22 12:38] LABS: CREATININE 1.1 mg/dL (0.5-1.5); POTASSIUM 4.5 mmol/L (3.5-5.1)
== END | disposition home or self-care (01) ==
LOC: LAB 10:00
PROVIDERS: ATTEND Internal Medicine Cardiovascular Disease
DX: I50.32 Chronic diastolic (congestive) heart failure (principal)
CPT/HCPCS: 36415; 80048; 83880

== ENCOUNTER → 2023-05-18 | Outpatient (CLI) | payer OTHER, MEDICARE | END | disposition home or self-care (01) | LOC: SHCH 08:22 | PROVIDERS: ATTEND Internal Medicine Cardiovascular Disease | DX: I51.7 Cardiomegaly (principal); R06.09 Other forms of dyspnea; I20.9 Angina pectoris, unspecified | CPT/HCPCS: 93306 ==

== ENCOUNTER 2023-07-28 10:43 | Emergency (ER) | payer OTHER, MEDICARE ==
[~2023-07-28] VITALS: Ht 157.5 cm; Wt 69.9 kg
[2023-07-28 10:45] VITALS: BP 128/48; PULSE 84; RESP 18
== END 2023-07-28 15:41 | disposition left against medical advice (07) ==
LOC: EDH 10:43
DX: M79.674 Pain in right toe(s) (principal); M79.89 Other specified soft tissue disorders; Z53.21 Procedure and treatment not carried out due to patient leaving prior to being seen by health care provider

== ENCOUNTER 2023-12-07 20:10 | Emergency (ER) | payer OTHER, MEDICARE ==
[~2023-12-07] VITALS: Ht 162.6 cm; Wt 72.6 kg
[2023-12-07] MEDS: 0.9%NACL 1000ML 1,000 ML IV ONE (21:04)
[2023-12-07 21:24] LABS: BASOPHILS # (AUTO) 0.02 K/uL (0.00-0.20); BASOPHILS % (AUTO) 0.5 % (0.0-5.0); EOSINOPHILS # (AUTO) 0.13 K/uL (0.00-0.70); EOSINOPHILS % (AUTO) 3.1 % (0.0-8.0); HEMATOCRIT 35.3 % (36-48); IMMATURE GRANULOCYTE ABSOLUTE 0.01 K/uL (0-1); LYMPHOCYTES % (AUTO) 24.2 % (21.0-51.0); MEAN CORPUSCULAR HEMOGLOBIN 29.5 pg (27.0-33.0); MEAN CORPUSCULAR HGB CONC 34.6 g/dL (32.0-36.0); MEAN CORPUSCULAR VOLUME 85.5 fL (79-99); MONOCYTES # (AUTO) 0.5 K/uL (0.1-1.0); MONOCYTES % (AUTO) 11.2 % (3.0-13.0); NEUTROPHILS # (AUTO) 2.5 K/uL (1.8-7.7); NEUTROPHILS % (AUTO) 60.8 % (40.0-77.0); PLATELET COUNT (AUTO) 75 K/uL (130-400); RED BLOOD CELL COUNT(AUTO) 4.13 MIL/uL (4.00-5.50); RED CELL DISTRIBUTION WIDTH 15.5 % (11.0-15.5); WHITE BLOOD COUNT (AUTO) 4.2 K/uL (4.8-10.8)
[2023-12-07 21:39] LABS: ALBUMIN 2.4 g/dL (3.5-5.0); BILIRUBIN,TOTAL 2.1 mg/dL (0.2-1.0); CREATININE 1.1 mg/dL (0.5-1.0); INR 1.17 (0.85-1.15); PARTIAL THROMBOPLASTIN TIME 25.9 SEC (26.3-35.5); PROTHROMBIN TIME 12.3 SEC (9.6-11.6); TOTAL PROTEIN, SERUM 6.1 g/dL (6.0-8.3)
[2023-12-07] MEDS: POTASSIUM BICARB/CIT AC 25 MEQ TABLET.EFF PO ONE (21:54)
[2023-12-07] MEDS: INSULIN HUMULIN R 100 UNIT/ML 3ML IV ONE (22:28)
[2023-12-07 22:48] VITALS: BP 136/57; PULSE 71; RESP 18; O2SAT 100
== END 2023-12-07 23:17 | disposition home or self-care (01) ==
LOC: EDH 20:10
DX: E11.65 Type 2 diabetes mellitus with hyperglycemia (principal); I25.10 Atherosclerotic heart disease of native coronary artery without angina pectoris; E78.00 Pure hypercholesterolemia, unspecified; Z79.84 Long term (current) use of oral hypoglycemic drugs; Z79.899 Other long term (current) drug therapy; Z90.49 Acquired absence of other specified parts of digestive tract; Z95.1 Presence of aortocoronary bypass graft
CPT/HCPCS: 99285; 96374; 71045; 84484; 80053; 85025; 85610; 85730; 82948; 36415; 93005; J1815; J7030